=== PATIENT | female | born 1965 | race Caucasian/White ===

== ENCOUNTER 2017-02-07 15:32 | Emergency (ER) | payer MEDICAID, OTHER ==
[~2017-02-07] VITALS: Ht 157.5 cm; Wt 84.4 kg
[2017-02-07 15:36] VITALS: Ht 157.5 cm; Wt 84.4 kg
[2017-02-07] MEDS ORDERED: IBUPROFEN 800 MG TAB PO ONE (16:30)
--- NOTE | 2017-02-07 17:18 | RADRPT ---
PROCEDURE: XR Knee. CLINICAL INDICATION: Right knee pain, no history of trauma TECHNIQUE: 3 images of the right knee are available for review. COMPARISON: None available FINDINGS: There is no acute fracture. Alignment is normal. There is a moderate to large knee joint effusion. There is mild medial and mild patellofemoral compartment osteoarthrosis. There is suggestion of mild osteopenia. IMPRESSION: 1. Moderate to large nonspecific knee joint effusion with suggestion of mild background osteopenia. 2. Mild medial and patellofemoral compartment osteoarthrosis. 3. No radiographic evidence of acute fracture. RPTAT: UU .Darryn Perez MD, MD Date Time Electronically viewed and signed by .Darryn Perez MD, on 02/07/2017 17:18 .K/
--- NOTE | 2017-02-07 17:44 | ERD ---
ER Documentation Chief Complaint Chief Complaint right knee pain x mos HPI This is a [age]-year-old female who presents to the emergency room for evaluation of right-sided knee pain. The patient states that she has had knee pain for the past 7 months. She denies any recent trauma to the area and states that she feels her knee is swollen. She states it is an achy pain worse with walking and flexing the knee. She denies any fevers or chills associated with this and came to the ER for evaluation of her symptoms. She rates her pain at a 5 out of 10 ROS All systems reviewed and are negative except as per history of present illness. PMhx/Soc Medical and Surgical Hx: pt denies Surgical Hx Hx Miscellaneous Medical Probl: Yes (arthritis) Hx Alcohol Use: No Hx Substance Use: No Hx Tobacco Use: No Smoking Status: Never smoker Physical Exam Vitals Vital Signs Date Time Temp Pulse Resp B/P Pulse Ox O2 Delivery O2 Flow Rate FiO2 02/07/17 15:36 97.4 88 18 119/77 99 Physical Exam Const: No acute distress Head: Atraumatic Eyes: Normal Conjunctiva ENT: Normal External Ears, Nose and Mouth. Neck: Full range of motion..~ No meningismus. Resp: Clear to auscultation bilaterally Cardio: Regular rate and rhythm, no murmurs Abd: Soft, non tender, non distended. Normal bowel sounds Skin: No petechiae or rashes Back: No midline or flank tenderness Ext: Palpable effusion below the right patella, no cyanosis, or edema Neur: Awake and alert Psych: Normal Mood and Affect Results 24 hrs Current Medications Medications (Trade) Dose Ordered Sig/Veronica Route PRN Reason Start Time Stop Time Status Last Admin Dose Admin Ibuprofen (Motrin) 800 mg ONCE ONCE PO 02/07/17 16:30 02/07/17 16:31 DC 02/07/17 16:34 Procedures/MDM X-ray Knee 3V Interpreted by me: Bones: [No fracture] Joints: Large effusion, no dislocation Foreign body: [None] Arthrocentesis by me: Patient consented, sterilely draped, full prep, time out performed. Anesthesia: 1% lidocaine locally Location: Right knee Technique: 18 gauge needle aspiration Results: 30] ml of serous fluid Complications: Minimal bleeding. No complications. [ED Ultrasound: Joint effusion localized by me using concurrent ultrasound guidance and assessment of the anatomy. Real time image archived in the medical record confirms anatomy.] This 49-year-old female presents to the ER for evaluation of right knee pain. The patient did have a palpable knee effusion under her patella and x-ray did confirm this. I did aspirate the knee with return of 30 cc of synovial fluid. This patient has no fever, there is no purulent fluid in my suspicion for septic arthritis is extremely low at this time. The patient does feel better after will be discharged home with a prescription for Motrin, Wells for breakthrough pain. Departure Diagnosis: Primary Impression: Effusion, right knee Additional Impression: Knee pain Condition: Stable SAPNA SHEA DO Feb 07, 2017 17:44
[2017-02-07] MEDS ORDERED: IBUP800T25 PO (17:45)
[2017-02-07] MEDS ORDERED: HYDR-906 PO (17:45)
[2017-02-07 18:00] VITALS: BP 130/83; PULSE 68; RESP 17
== END 2017-02-07 18:01 | disposition home or self-care (01) ==
LOC: FTE 15:32
DX: M25.461 Effusion, right knee (principal)
CPT/HCPCS: 20610; 73562; Z7502; Z7610

== ENCOUNTER 2017-02-12 11:27 | Emergency (ER) | payer MEDICAID ==
[~2017-02-12] VITALS: Wt 84.8 kg
[~2017-02-12 11:27] MED LIST: HYDR-906 PO; IBUP800T25 PO
--- NOTE | 2017-02-12 13:10 | ERD ---
ER Documentation Chief Complaint Chief Complaint RIGHT KNEE PAIN, UNABLE TO FF-UP WITH PMD, OUT OF PAIN MEDS HPI The patient is a 51-year-old female, presenting with right knee pain.. She was seen in the ER on February 07, 2017, had right knee aspiration due to right knee effusion. She ran out of pain medication and has not been able to see her physician. She denies any trauma, fever, chest pain, dyspnea, hemoptysis, abdominal pain, vomiting, dysuria, diarrhea. She does not smoke nor drink Past medical/surgical history: None ROS All systems reviewed and are negative except as per history of present illness. Medications Home Meds Active Scripts Tramadol HCl (Tramadol HCl) 50 Mg Tablet, 50 MG PO Q6, #20 TAB Prov:KEATON ZAVALA MD 02/12/17 Hydrocodone/Acetaminophen (Comstock 5-325 Tablet) 1 Each Tablet, 1 TAB PO Q6H Y for PAIN, #12 TAB Prov:SAPNA SHEA DO 02/07/17 Ibuprofen* (Motrin*) 800 Mg Tab, 800 MG PO Q6H Y for PAIN AND OR ELEVATED TEMP, #30 TAB Prov:SAPNA SHEA DO 02/07/17 Allergies Allergies: Coded Allergies: No Known Allergy (Unverified , 02/12/17) PMhx/Soc Hx Miscellaneous Medical Probl: Yes (arthritis) Hx Alcohol Use: No Hx Substance Use: No Hx Tobacco Use: No Physical Exam Vitals Vital Signs Date Time Temp Pulse Resp B/P Pulse Ox O2 Delivery O2 Flow Rate FiO2 02/12/17 11:34 100.1 87 18 159/74 97 Physical Exam Const: No acute distress. Head: Atraumatic. Eyes: Normal Conjunctiva. ENT: Normal External Ears, Nose and Mouth. Neck: Full range of motion. No meningismus. Resp: Clear to auscultation bilaterally. Cardio: Regular rate and rhythm. Abd: Soft, non distended, normal bowel sounds, non tender. Skin: No petechiae or rashes. Back: No midline or flank tenderness. Ext: Bilateral knee with crepitus, rt knee with effusion, mild left calf tenderness Neur: Awake and alert. No focal deficit Psych: Normal Mood and Affect. Results 24 hrs Current Medications Medications (Trade) Dose Ordered Sig/Veronica Route PRN Reason Start Time Stop Time Status Last Admin Dose Admin Acetaminophen/ Hydrocodone Bitart (Comstock (10)) 1 tab ONCE ONCE PO 02/12/17 13:30 02/12/17 13:31 DC 02/12/17 13:21 Ondansetron HCl (Zofran Odt) 4 mg ONCE STAT ODT 02/12/17 13:15 02/12/17 13:17 DC 02/12/17 13:21 Procedures/[place] [id number] Radiology Main Line: [phone] DIAGNOSTIC IMAGING REPORT Patient: CRISS NEWTON : 1965 Age: 51 Sex: F MR #: [id number] DOS: 02/12/17 1315 Ordering MD: KEATON ZAVALA MD Location: [facility] Room/Bed: PROCEDURE: US Lower extremity Venous. CLINICAL INDICATION: Right leg edema TECHNIQUE: Multiple sonographic images of the right lower extremity deep venous system was obtained utilizing grayscale, color-flow, compressive sonography and doppler imaging with augmentation. The images were reviewed on a PACS workstation. COMPARISON: None. FINDINGS: There is normal compressibility and flow within the right common femoral, femoral, posterior tibial, peroneal and popliteal veins. There is a 5.0 x 1.4 cm fluid collection in the right anterior knee soft tissues. RPTAT: AA IMPRESSION: No sonographic evidence for deep venous thrombosis. 5 cm right anterior knee fluid collection. .Rogers Aguiar MD, MD Date Time Electronically viewed and signed by .Rogers Aguiar MD, on 02/12/2017 13: 52 .S/ CC: KEATON ZAVALA MD MEDICAL MAKING DECISION: The patient is a 51-year-old female, presenting with acute right knee pain of unclear etiology. She was treated with Comstock 10 mg p.o. for pain, Zofran ODT for nausea with good response. The differential diagnoses considered include but are not limited to internal derangement, fracture, contusion, septic arthritis Departure Diagnosis: Primary Impression: Knee pain Condition: Good Comments She was discharged with Ultram The patient's blood pressure was elevated (>120/80) but appears stable without evidence of hypertension emergency or urgency. The patient was counseled about the risks of hypertension and urged to pursue outpatient monitoring and therapy within a week with their primary care physician. I discussed the findings with the patient. I advised the patient to follow-up with the local orthopedist Dr Amador in about 1-2 days, sooner if needed and return if any concern. Disclaimer: Inadvertent spelling and grammatical errors are likely due to EHR/ dictation software use and do not reflect on the overall quality of patient care. Also, please note that the electronic time recorded on this note does not necessarily reflect the actual time of the patient encounter. KEATON ZAVALA MD Feb 12, 2017 13:10
[2017-02-12] MEDS ORDERED: ONDANSETRON (ODT) 4 MG TAB ODT STA (13:15)
[2017-02-12] MEDS ORDERED: HYDROCODONE/APAP (10/325) TAB PO ONE (13:30)
--- NOTE | 2017-02-12 13:53 | RADRPT ---
PROCEDURE: US Lower extremity Venous. CLINICAL INDICATION: Right leg edema TECHNIQUE: Multiple sonographic images of the right lower extremity deep venous system was obtaine d utilizing grayscale, color-flow, compressive sonography and doppler imaging with augmentation. Th e images were reviewed on a PACS workstation. COMPARISON: None. FINDINGS: There is normal compressibility and flow within the right common femoral, femoral, posterior tibial, peroneal and popliteal veins. There is a 5.0 x 1.4 cm fluid collection in the right anterior knee soft tissues. RPTAT: AA IMPRESSION: No sonographic evidence for deep venous thrombosis. 5 cm right anterior knee fluid collection. .Rogers Aguiar MD, MD Date Time Electronically viewed and signed by .Rogers Aguiar MD, on 02/12/2017 13:52 .S/
[2017-02-12] MEDS ORDERED: TRAM50TA2 PO (14:32)
== END 2017-02-12 14:46 | disposition home or self-care (01) ==
LOC: FTE 11:27
DX: M25.561 Pain in right knee (principal)
CPT/HCPCS: 93971; Z7502; Z7610